=== PATIENT | male | born 2000 | race Caucasian/White ===

== ENCOUNTER 2023-07-31 13:52 | Emergency (ER) | payer OTHER, SELFPAY ==
[~2023-07-31] VITALS: Ht 167.6 cm; Wt 65.9 kg
[2023-07-31] MEDS ORDERED: KEPP1TAB2 PO (14:04)
[2023-07-31] MEDS ORDERED: DEPA1TAB3 PO ×2 (14:04→14:05)
[2023-07-31] MEDS ORDERED: KEPP750T3 PO (14:14)
[2023-07-31 14:28] LABS: BASO % 0.4 % (0.0-1.0); EOS % 0.8 % (0.0-3.0); HEMATOCRIT 46.1 % (42.0-52.0); HEMOGLOBIN 15.1 g/dl (13.5-17.5); LYMPH % 18.3 % (24.0-44.0); MEAN CORPUSCULAR HEMOGLOBIN 31.3 pg (27.0-33.0); MEAN CORPUSCULAR HGB CONC 32.8 g/dl (32.0-36.5); MEAN CORPUSCULAR VOLUME 95.4 fl (80.0-96.0); MONO # 0.5 10^3/uL (0.0-0.8); MONO % 8.7 % (2.0-8.0); NEUTROPHILS # 3.8 10^3/uL (1.5-8.5); NEUTROPHILS % 70.9 % (36.0-66.0); PLATELET COUNT, AUTOMATED 197 10^3/uL (150-450); RED BLOOD COUNT 4.83 10^6/uL (4.30-6.10); WHITE BLOOD COUNT 5.3 10^3/uL (4.0-10.0)
[2023-07-31] MEDS ORDERED: BOOSTRIX VACCINE (TETANUS/DIPHTH/ACEL. PERTUSSIS) 0.5ML SYR IM.IMMUN ONE (14:40)
[2023-07-31 14:54] LABS: VALPROIC ACID (DEPAKOTE) 4.3 UG/ML (50.0-100.0)
[2023-07-31 14:55] LABS: BLOOD UREA NITROGEN 12 MG/DL (9-23); CALCIUM LEVEL 8.9 MG/DL (8.5-10.1); CARBON DIOXIDE LEVEL 26 MMOL/L (20-31); CHLORIDE LEVEL 106 MMOL/L (98-107); CREATININE FOR GFR 0.78 MG/DL (0.70-1.30); GLOMERULAR FILTRATION RATE > 60.0 (>60); GLUCOSE, FASTING 103 MG/DL (60-100); POTASSIUM SERUM 4.5 MMOL/L (3.5-5.1); SODIUM LEVEL 142 MMOL/L (136-145)
[2023-07-31 14:56] LABS: BILIRUBIN,DIRECT 0.3 MG/DL (<0.4); BILIRUBIN,TOTAL 0.9 MG/DL (0.3-1.2); TOTAL PROTEIN 6.7 G/DL (5.7-8.2)
[2023-07-31] MEDS ORDERED: DIVALPROEX 500 MG TAB PO ONE (15:20)
[2023-07-31 17:00] VITALS: BP 97/53; O2SAT 98
[2023-07-31 17:17] VITALS: TEMP 98
[2023-07-31] MEDS ORDERED: DIVALPROEX 500MG *ER* TAB PO ONE (17:25)
== END 2023-07-31 17:51 | disposition home or self-care (01) ==
LOC: M ED 13:52 → EDBD 13:52 → M ED 17:51
DX: G40.909 Epilepsy, unspecified, not intractable, without status epilepticus (principal); S01.552A Open bite of oral cavity, initial encounter; F17.200 Nicotine dependence, unspecified, uncomplicated; F19.10 Other psychoactive substance abuse, uncomplicated; Z79.83 Long term (current) use of bisphosphonates; Z79.899 Other long term (current) drug therapy; Z23 Encounter for immunization